=== PATIENT | female | born 2005 | race Caucasian/White ===

== ENCOUNTER 2025-02-14 12:18 | Outpatient (OUT) | payer OTHER, SELFPAY ==
--- OUTSIDE RECORDS SUMMARY | 2025-02-13 11:30 | XMS_ITS ---
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 No Ayusqc3QeocyyeotmrkjwXmqnppgl Problems Problem Type SNOMED Code ICD Code Onset Dates Problem Status W/U Status Risk Notes Problem Well adult (028310656) Well adult (Z00.00 ) Activeconfirmed Vital Signs Weight 152 lbs 02/13/2025 Height 60 in 02/13/2025 Blood pressure systolic 118 mm Hg 02/14/20 25 Blood pressure diastolic 70 mm Hg 025 BMI 29.68 kg/m2 02/13/2025 BMI Percentile 92.85 % 02/13/2025 Encounters Encounter Location Date Provider Diagnosis [facility] [address] [place] [address] 02/13/2025 Rocky Flores Well adult Z00.0 0 Assessments Encounter Date Diagnosis (ICD Code) Assessment Notes Treatment Notes Treatment Clinical Notes Section Notes 02/13/2025 Well adult (ICD-10 - Z00.00) Plan Of Treatment Medication Medication Name Sig Start Date Stop Date Notes hydrOXYzine HCl 25 MG 1 tablet Orally BID as nee ded Concerta 27 MG1 tablet in the morning Orally Once a day; Duration: 30 days 02/13/2025Pending Test Test Name Order Date HEMOGLOBIN A1C (GLYCO) 02/13/2025 LIPID PANEL (CHOL/TRIG/HDL/LDL) 02/14/20 25 Insulin Level 02/13/2025 THYROID PANEL (T4/TSH/FREE T3) 5 CMP (COMP MET HUFFMAN) w/eGFR CKD-EPI 2024 CBC WITH DIFF 02/13/2025 Progress Notes * FRANCIA OROZCODOB:[birth year] (19 yo F)Acc No.[id number]:02/13/2025 UNLOCKED PROGRESS NOTE New Patient Patient: FRANCIA HOLLINGSWORTH :?Salvador Flores ([facility]), MDDOB:2005???Age: 19 Y???Sex:FemaleDate:02/13/2025Phone:[phone]:[id number], [facility]Bmtrl In:03:40 PM ESTCheck Out:05:15 PM EST Subjective: * Chief Complaints: * 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 * ROS: ???EENT:?hearing changes?denies.?visual changes?denies. non-healing mouth sores?denies.?swollen glands or neck lumps?denies.?hoarseness?denies.?sore throat?denies.?difficulty swallowing?denies.?nose bleeds?denies.?nasal congestion?denies.?ear ache?denies.?ear discharge denies.?ringing in ears?denies.?light sensitivity?denies.?eye pain?denies.?blurring?denies.?eye irritation?denies.?double vision?denies. vision loss?denies.?General/Constitutional:?Sweats:?Denies.?Fatigue?denies.?Sleep proble ms?denies.?Anorexia?denies.?Malaise?denies.?Weight loss?denies. Fatigue or Weakness?denies.?Fever or Chills?denies.?Cardiovascular:?Shortness of Breath w/lying flat?denies.?Lightheadedne ss/dizziness?denies.?Chest tightness/ heavy pressure?denies.?Swelling of legs, a nkles, or feet?denies.?Waking up with shortness of breath?denies.?Chest pain&#16 0;denies.?Palpitations?denies.?Weight gain?denies.?Respiratory:?Chronic or frequent cough?denies.?Coughing up blood&#1 60;denies.?Difficulty breathing?denies.?Productive cough?denies.?Snoring&#1 60;denies.?Shortness of breath that awakens from sleep (PND)?denies.?Chest pain? denies.?Sputum production?denies.?Wheezing?denies.?Musculoskeletal:?Joint pain?denies.?Joint Fluid?denies.?Backpain?denies.?Knee pain?denies.?Neck pain?denies.?Joint Stiffness?denies.?Muscle cramps?denies.?Weakness of muscles?denies.?Arthritis?denies.?Muscle aches?denies.?Pain in shoulder(s)?denies.?Swollen joints?denies.? * Medical History: M edical History Verified. * Family History: F ather: alive, diagnosed with Diabetes, Hypertension. M other: alive, diagnosed with Diabetes. B rother(s): alive. 2 brother(s) . . * Social History: ???Tobacco Use:?Tobacco Control (Standard)?Tobacco use:?Nonsmoker ???Drug/Alcohol:?AUDIT-C (Standard)?Did you have a drink containing alcohol in the past year??No ?Points?0 ?Interpretation?Negative * Medications: Kin manzano Concerta(Methylphenidate HCl ER (OSM)) 27 MG Tablet Extended Release 1 tablet in the morning Orally Once a day , Taking hydrOXYzine HCl 25 MG Tablet 1 tablet Orally BID as needed , Medication List reviewed and reconciled with the patient * Allergies: A moxicillin: nausea and vomiting. Objective: * Vitals: W t:152lbs, Ht: 60 in, BP:118/70mm Hg, BMI:29.68Index, Ht-cm: 152.4 cm, Wt-k.95 kg, Wt %: 81.85 %, BMI %: 92.85 %, Ht %: 4.64 %. * Examination: ???Physical Exam: ?GENERAL:?well developed, well nourished, in no acute distress.?HEAD:?normocephalic/atraumatic.?EYES:?pupils equal, round and reactive to light, conjunctivae and sclerae normal.?EARS:?no deformity or lesion of external ear, canals and TM appear normal bilaterally, TM's intact, not inflamed with normal light reflex, hearing grossly normal to conversational speech.?NOSE:?no deformity, discharge, inflammation, or lesions. ?MOUTH:?mucous membranes moist, normal oropharynx and posterior pharynx without lesions or exudates, tongue normal, dentition normal.?NECK:?neck supple, no masses or palpable cervical nodes, trachea midline, thyroid without nodules, masses, tenderness, or enlargement.?CHEST:?no chest wall deformity, no chest wall tenderness. ?LUNGS:?normal respiratory effort and clear to auscultation, no wheezes, rales, or rhonchi, good air exchange.?CARDIO:?regular rate and rhythm, normal S1 and S2, nor murmur, rub, or gallop.?PULSES:?normal capillary refill.?ABDOMEN:?soft, non-distended, non-tender, no masses.?MUSCULOSKELETAL:?no deformity or scoliosis noted, normal range of motion, joints normal, no erythema, edema, effusion, or ecchymosis.?EXTREMITY:?no clubbing, cyanosis, edema, or deformity withnormal ROM in both upper and lower bilateral extremities.?NEUROLOGIC:?grossly normal.?SKIN:?no rashes, ulcerations, or suspicious lesions.?LYMPH NODES:?no cervical adenopathy, nodes normal.?MENTAL STATUS:?alert and oriented x3, normal mood and affect.? Assessment: * Assessment: 1.?Well adult - Z00.00 (Primary)??? Plan: * Treatment: Refill Concerta Tablet Extended Release, 27 MG, 1 tablet in the morning, Orally, Once a day, 30 days, 30 Tablet, Refills 0;?Refill hydrOXYzine HCl Tablet, 25 MG, 1 tablet, Orally, BID as needed. ?LAB: HEMOGLOBIN A1C (GLYCO) ?LAB: LIPID PANEL (CHOL/TRIG/HDL/LDL) ?LAB: Insulin Level ?LAB: THYROID PANEL (T4/TSH/FREE T3) ?LAB: CMP (COMP MET HUFFMAN) w/eGFR CKD-EPI ?LAB: CBC WITH DIFF * Procedure Codes: 3 078F DIAST BP < 80 MM HG, 3074F SYST BP LT 130 MM HG * * Electronic signature of Rocky Flores MD, [id number] on 02/14/2025 at 12:30 PM EST Sign off status: PendingVisit Status:?CHK (Check Out) * Provider: Jossie Flores ([facility])MD Date: 1 04/16/2024 Generated for Printing/Faxing/eTransmitting on:?02/14/2025 12:30 PM EST History and Physical Notes * Examination CategorySub-CategoryDetailNotesCategory NotesPhysical ExamGENERAL:well developed, well nourished, in no acute distressHEAD:normocephalic/atraumatic EYES:pupils equal, round and reactive to light, conjunctivae and sclerae normal EARS:no deformity or lesion of external ear, canals and TM appear normal bilaterally, TM's intact, not inflamed with normal light reflex, hearing grossly normal to conversational speechNOSE:no deformity, discharge, inflammation, or lesionsMOUTH:mucous membranes moist, normal oropharynx and posterior pharynx without lesions or exudates, tonguenormal, dentition normalNECK:neck supple, no masses or palpable cervical nodes, trachea midline, thyroid without nodules, masses, tenderness, or enlargementCHEST:no chest wall deformity, no chest wall tendernessLUNGS:normal respiratory effort and clear to auscultation, no wheezes, rales, or rhonchi, good air exchangeCARDIO:regular rate and rhythm, normal S1 and S2, nor murmur, rub, or gallopPULSES:normal capillary refillABDOMEN:soft, non-distended, non-tender, no massesRECTAL:MUSCULOSKELETAL:no deformity or scoliosis noted, normal range of motion, joints normal, no erythema, edema, effusion, or ecchymosisEXTREMITY:no clubbing, cyanosis, edema, or deformity with normal ROM in both upper and lower bilateral extremitiesNEUROLOGIC:grossly normalSKIN:no rashes, ulcerations, or suspicious lesionsLYMPH NODES:no cervical adenopathy, nodes normalMENTAL STATUS:alert and oriented x3, normal mood and affect
--- OUTSIDE RECORDS SUMMARY | 2025-02-14 12:30 | XMS_ITS | Clinical Summary ---
Author Organization [facility] Address [address] [place] [address] Care Team Providers Care Electric Motor Analyst Name Role Phone Jerman Jack MD Primary Care Provider Allergies Active AllergyReactionsCriticalityNoted IbtgKxkhsuphNecxpwlajnfOyzfUmd78/30/2018 Blueberry Flavoring Agent (Non-Screening)JaanUgh1812/22/2022 Medications MedicationSigDispense QuantityRefillsLast FilledStart DateEnd DateStatus Methylphenidate HCl (methylphenidate ER) 27 MG 24 hr tablet Take 27 mg by mouth in the morning.Active norgestimate-ethinyl estradiol (Tri-Sprintec) 0.18/0.215/0.25 MG-35 MCG tablet Indications:Irregular periodsTAKE 1 TABLET BY MOUTH IN THE MORNING 28 tablet ctive Family History RelationNameStatusCommentsFatherAliveMotherAlive Social History Tobacco UseTypesPacks/DayYears UsedDateSmoking Tobacco: NeverSmokeless Tobacco: NeverAlcohol UseStandard Drinks/WeekCommentsNever0 (1 standard drink = 0.6 oz pure alcohol)caffeine: 1 coffee every 2 -3 daysCommentsNoSex and Gender InformationValueDate RecordedSex Assigned at BirthNot on fileLegal SexFemale 05/14/2022 11:06 PM EDTGender IdentityNot on fileSexual OrientationNot on file Last Filed Vital Signs Vital SignReadingTime TakenCommentsBlood Qkflbmec448/70006/22/2023 3:54 PM EDT Pulse--Temperature--Respiratory Rate--Oxygen Saturation--Inhaled Oxygen Concentration--Vmnxlx97.2 kg (179 lb)06/22/2023 3:54 PM SGGAzzyqy066.4 cm (5') 12/22/2022 4:29 PM EDTBody Mass Index-- Plan of Treatment Not on file Insurance MemberSubscriberPlan / Payer (Effective 2019-Present)Name:Ivonne Orozco Relation to Subscriber:ChildName:MARY OROZCO Date of :1976 Address: [address] [place] [id number] Payer ID:Not on file Type:Not on file Address: [place] [id number] MemberSubscriberPlan / Payer (Effective 2019-Present)Name:Ivonne Orozco Relation to Subscriber:ChildName:MARY OROZCO Date of :1976 Address: [address] [place] [address] Payer ID:Not on file Type:Not on file Address: [place] [id number] Care Teams Team MemberRelationshipSpecialtyStart DateEnd Date Jerman Jack MD PCP - GeneralFamily Jxrfzncb29/23/23
--- OUTSIDE RECORDS SUMMARY | 2025-02-14 12:30 | XMS_ITS | Clinical Summary ---
Author Organization [employer] tem Address [id number] [address] [place] [address] Care Team Providers Care Business Control Manager Name Role Phone Jonnathan Diaz MD Primary Care Provider [phone] Allergies Active AllergyReactionsCriticalityNoted LofkVghmybjeAizwmnafpqz99/30/2018 Blueberry PechsnTsctNrs47/23/2023 Medications MedicationSigDispense QuantityRefillsLast FilledStart DateEnd DateStatus TRI-SPRINTEC, 28, 0.18/0.215/0.25 mg-35 mcg (28) per tablet Take 1 tablet by mouth in the morning.03/16/2021ctive hydrOXYzine (ATARAX) 25 mg tablet Take 1 tablet (25 mg total) by mouth 3 (three) times a day as needed for itching. 30 tablet 4Active CONCERTA 27 mg CR tablet Indications:Attention deficit hyperactivity disorder (ADHD), combined typeTake 1 tablet (27 mg total) by mouth every morning. Max Daily Amount: 27 mg 30 tablet 5Active Additional Information Patient taking differently:27 mg oral Every morning,Taking as needed., Reported on 08/17/2024 Active Problems ProblemNoted DateDiagnosed OwenYpgbccaqn56/23/1939Clkzlzu83/23/2018 Immunizations ImmunizationAdministration DatesNext LpuTQqA3706/03/2010,08/26/2006,2005, 2005,2005HPV Ggunuyipylqq68/31/2019,08/18/2017HPV905, 08/18/2017Hep A, 2 Dose08/18/2017Hepatitis A008/18/2017Hepatitis B03HiB 05/21/2006,2005,2005,2005IPV047565IHU5506/03/2010,05/21/2006 Meningococcal Xuvciylov16/19/2018Meningococcal Polysaccharide TT Conjugate 3Pneumococcal Icwdrefoa17/27/2007,2005,2005,2005Tdap 08/18/2017 Family History Medical HistoryRelationNameCommentsDiabetesFatherHyperlipidemiaFather HypertensionFatherDepressionMotherMental illnessMotherSeizuresMotherDiabetes Paternal GrandfatherProstate cancerPaternal GrandfatherDiabetesPaternal GrandmotherRelationNameStatusCommentsFatherMotherPaternal GrandfatherPaternal Grandmother Social History Tobacco UseTypesPacks/DayYears UsedDateSmoking Tobacco: NeverSmokeless Tobacco: Never Tobacco Cessation:Counseling Given: Not Answered Alcohol UseStandard Drinks/WeekCommentsNo0 (1 standard drink = 0.6 oz pure alcohol)PHQ-2AnswerDate RecordedTotal Hzejh4415ChildcareAnswerDate DbmvxexpXevmcamadXkbrmzs26/10/2019EmploymentAnswerDate RecordedEmploymentUnknown 08/09/2018Hunger ScreeningAnswerDate RecordedWithin the past 12 months we worried whether our food would run out before we got money to buy more.Never True08/17/2024Within the past 12 months the food we bought just didn't last and we didn't have money to get more.Never True08/17/2024Purpose - LifeAnswerDate RecordedPurpose and direction in wuzgRpxogwz08/11/2021CommentsNoSex and Gender InformationValueDate RecordedSex Assigned at BirthNot on fileLegal Sex Rjxniw5410/09/2014 6:56 PM EDTGender IdentityNot on fileSexual OrientationNot on file Last Filed Vital Signs Vital SignReadingTime TakenCommentsBlood Boggclut787/8012 10:58 AM EST Djbrz18621/18/2025 10:56 AM CIPJwjcclqoduh77.2 ??C (97.1 ??F)11/14/2022 2:03 PM EDTRespiratory Ilih070208/17/2024 10:56 AM EDTOxygen Cbeuuopsvp43%05/26/2022 4:19 PM EDTInhaled Oxygen Concentration--Rhiyod26.1 kg (170 lb)08/17/2024 10:56 AM QRFWpdngo006.4 cm (5')02/12/2024 10:58 AM ESTBody Mass Index33. 10:58 AM EST Plan of Treatment Health MaintenanceDue DateLast DoneCommentsAdult BMI Follow Up Plan05/04/2023 COVID-19 Vaccine ( season), 08/14/2020, 07/24/2020Influenza Ffwowzc6310/31/2024dult BMI Rrzepzljd04/ Depression Pekzdapum14Tobacco Mpkqfaxbb97 DTaP,Tdap and Td Vaccines (7 - Td or Tdap), 06/03/2010, 08/26/2006, Additional history exists Medical Devices Not on file Insurance MemberSubscriberPlan / Payer (Effective 2017-Present)Name:Ivonne Ziegler Relation to Subscriber:ChildName:Toney Harris Salvador Date of :1976 (Home) Address: [address] [place] [address] Payer ID:Not on file Type:Not on file Address: [address] [place] [phone] * Guarantor: Marylu Ziegler TypeRelation to PatientDate of PhoneBilling AddressPersonal/AtknxxKyruvg16/10/[address] [address] * Guarantor: Harris Ziegler TypeRelation to PatientDate of PhoneBilling AddressPersonal/MznpqgPmyyhh74/20/1977 [facility] [address] MemberSubscriberPlan / Payer (Effective 2017-Present)Name:Ivonne Ziegler Relation to Subscriber:ChildName:Harris Ziegler Date of :1976 (Home) Address: [address] [place] [address] Payer ID:Not on file Type:Not on file Address: [address] [place] [phone] Care Teams Team MemberRelationshipSpecialtyStart DateEnd Date Jonnathan Diaz MD [address] [place] [address] PCP - GeneralInternal Medicine08/17/24
--- OUTSIDE RECORDS SUMMARY | 2025-02-14 12:30 | XMS_ITS | Patient Health Record ---
Author Organization [facility] [place] Address [address] [place] [address] Care Team Providers Care Clearance Diver Name Role Phone Rocky Flores Primary Care Provider Allergies Allergen (clinical drug ingredient) Drug/Non Drug Allergy documented on EMR Reaction Allergy Type Onset Date Status amoxicillin Amoxicillin nausea and vomiting Drug Allergy Active Reason For Referral No Information Medications Medication SIG (Take, Route, Frequency, Duration) [...] alcohol in the p ast year? No Knywia4LspmkizxlfqpjnTbenolus Problems Problem Type SNOMED Code ICD Code Onset Dates Problem Status W/U Status Risk Notes Problem Well adult (087955135) Well adult (Z00.00 ) Activeconfirmed Vital Signs Blood pressure diastolic 70 mm Hg 02/13/2025 BMI Uppxqjyhzh56.85 %02/13/20256943Rgndmi54 in02/13/2025lood pressure rxwizyxo556 mm Hg02/13/20250912Ucezjz544 lbs104/16/2024BMI29.68 kg/m202/13/2025 Encounters Encounter Location Date Provider Diagnosis [facility] [address] [place] [address] 02/13/2025 Rocky Juan Alebrtoinocencio Well adult Z00.0 0 Assessments Encounter Date Diagnosis (ICD Code) Assessment Notes Treatment Notes Treatment Clinical Notes Section Notes 02/13/2025 Well adult (ICD-10 - Z00.00) Plan Of Treatment Pending Test Test Name Order Date HEMOGLOBIN A1C (GLYCO) 02/13/2025 LIPID PANEL (CHOL/TRIG/HDL/LDL) 02/14/20 25 Insulin Level 02/13/2025 THYROID PANEL (T4/TSH/FREE T3) 5 CMP (COMP MET HUFFMAN) w/eGFR CKD-EPI 2024 CBC WITH DIFF 02/13/2025 Insurance Providers Payer Name Payer Address Payer Phone Subscriber Number Group Number Insured Name Patient Relationship to Insured Coverage Start Date Coverage End Date MMO [address] [facility], [place] [id number] Tanner OROZCO - patient is the insured
[2025-02-14 13:02] LABS: Hematocrit 47.3 % (36.0-48.0); Hemoglobin 15.3 g/dL (12.0-16.0); Immature Granulocytes Abs Auto 0.01 10^3/uL (0.00-0.03); Immature Granulocytes Pct Auto 0.2 % (0.0-0.5); Lymphocytes Absolute Auto 2.4 10^3/uL (1.2-3.8); Mean Corpuscular HGB Conc 32.3 g/dL (29.9-35.2); Mean Corpuscular Hemoglobin 30.3 pg (26.7-34.0); Mean Corpuscular Volume 93.7 fL (81.0-99.0); Platelet Count 292 10^3/uL (150-450); Red Blood Count 5.05 10^6/uL (4.20-5.40); White Blood Count 6.3 10^3/uL (4.0-11.0)
[2025-02-14 13:39] LABS: Alanine Aminotransferase 23 U/L (14-59); Albumin Globulin Ratio 1.1; Albumin Level 4.0 g/dL (3.4-5.0); Alkaline Phosphatase 90 U/L (46-116); Anion Gap 13.0; Aspartate Amino Transferase 13 U/L (15-37); Blood Urea Nitrogen 13.0 mg/dL (6.4-19.3); Calcium 9.1 mg/dL (8.5-10.1); Carbon Dioxide 29.1 mmol/L (21.0-32.0); Chloride 105 mmol/L (98-107); Cholesterol 185 mg/dL (104-227); Estimated GFR (African America >60 (>=60 mL/min/1.73m^2); Estimated GFR (Non-African Ame >60 (>=60 mL/min/1.73m^2); Free T3 2.78 pg/mL (2.91-4.70); Globulin 3.5 g/dL; Glucose 92 mg/dL (74-106); HDL Cholesterol 49 mg/dL (29-69); Potassium 4.1 mmol/L (3.5-5.1); Sodium 143 mmol/L (136-145); Thyroid Stimulating Hormone 0.511 uIU/mL (0.516-4.130); Total Protein 7.5 g/dL (6.4-8.2); Triglycerides 52 mg/dL (53-208); VLDL CHOLESTEROL 10.4 mg/dL
== END 2025-02-14 12:19 | disposition home or self-care (01) ==
PROVIDERS: PCP Family Medicine; Visit Provider Family Medicine
DX: Z00.00 Encounter for general adult medical examination without abnormal findings (principal)
CPT/HCPCS: 36415; 80053; 80061; 83036; 83525; 84436; 84443; 84481; 85025